=== PATIENT | male | born 1965 | race Caucasian/White ===

== ENCOUNTER 2017-03-28 02:57 | Emergency (ER) | payer MEDICARE ==
[~2017-03-28] VITALS: Ht 170.2 cm; Wt 72.6 kg
[2017-03-28 03:00] VITALS: BP 140/90
--- NOTE | 2017-03-28 03:00 | NUR ---
Domingo CAPONE as prebook.
--- NOTE | 2017-03-28 03:04 | NUR ---
Patient being evaluated by Dr. Hinson at bedside.
[2017-03-28] MEDS ORDERED: IBUPROFEN 800 MG TAB PO ONE (03:15)
--- NOTE | 2017-03-28 03:20 | NUR ---
X-Ray at bedside.
[2017-03-28 03:54] VITALS: BP 128/74
--- NOTE | 2017-03-28 03:55 | NUR ---
Patient discharged with v/s stable. Written and verbal after care instructions given and explained. Patient verbalized understanding. Police with in custody. All questions addressed prior to discharge. Advised to follow up with PMD.
== END 2017-03-28 03:55 ==
LOC: MED 02:57
DX: S52.692A Other fracture of lower end of left ulna, initial encounter for closed fracture (principal); F10.10 Alcohol abuse, uncomplicated; V29.9XXA Motorcycle rider (driver) (passenger) injured in unspecified traffic accident, initial encounter; Y93.89 Activity, other specified; Y92.89 Other specified places as the place of occurrence of the external cause; Y99.8 Other external cause status
CPT/HCPCS: 29125; 73090; 73130; 99284; Q0092

== ENCOUNTER 2020-02-28 11:08 | Emergency (ER) | payer MEDICAID, MEDICARE ==
[~2020-02-28] VITALS: Ht 177.8 cm; Wt 90.7 kg
--- NOTE | 2020-02-28 11:08 | NUR ---
PATIENT BIBA TO ER BED 5.
--- NOTE | 2020-02-28 11:10 | NUR ---
54 y/o male biba from bus stop for ETOH intoxication. Per ems pt was found by PD slurring words, with unsteady gait, and confused. Pt states "i drank all of the allie waters", unable to give specific amount. Denies pain. Denies N/V/D. Positioned for comfort, placed on bedside monitor. VSS medhx: unobtainable
--- NOTE | 2020-02-28 11:11 | NUR ---
DR GARCIA AT BEDSIDE EVALUATING PT.
[2020-02-28 11:14] VITALS: BP 119/70
[2020-02-28 13:10] VITALS: BP 119/70
--- NOTE | 2020-02-28 13:10 | NUR ---
Pt dischared without d/c paperwork. Pt did not want to wait for papers. Dr Pedroza made awake. Ambulatory with steady gait.
== END 2020-02-28 13:10 | disposition home or self-care (01) ==
LOC: MED 11:08
DX: F10.129 Alcohol abuse with intoxication, unspecified (principal)
CPT/HCPCS: 99283

== ENCOUNTER 2020-07-26 18:31 | Emergency (ER) | payer MEDICAID ==
[~2020-07-26] VITALS: Ht 172.7 cm; Wt 77.1 kg
[2020-07-26] MEDS ORDERED: HALOPERIDOL IM 5 MG/ML VIAL ONE (18:43)
[2020-07-26] MEDS ORDERED: HALOPERIDOL IM 5 MG/ML VIAL IM ONE (18:45)
[2020-07-26 18:46] VITALS: BP 104/56
[2020-07-26] MEDS ORDERED: NACL 0.9% 1,000 ML IV ONE (19:05)
--- NOTE | 2020-07-26 19:19 | NUR ---
Dr. Lay examining patient.
--- NOTE | 2020-07-26 19:45 | NUR ---
RECEIVED PT IN BED 1 WITH SOFT WRIST RESTRAINTS IN PLACE. AWAKENED WITH LITTLE ENCOURAGEMENT.PT IS VERY AGITATED AND RESTLESS. WAS MEDICATED PRIOR TO MY ARRIVALBUT REMAINS UNCOOPERATIVE.
--- NOTE | 2020-07-26 20:25 | NUR ---
PT REMAINS RESTLESS. 20G SL ESTABLISHED RIGHT HAND, LABS DRAWN
[2020-07-26 20:34] LABS: BASOPHILS # (AUTO) 0.1 K/uL (0.00-0.22); EOSINOPHILS # (AUTO) 0.1 K/uL (0-0.4); EOSINOPHILS % (AUTO) 2.1 % (0.0-4.0); HEMOGLOBIN 9.8 g/dL (12.0-18.0); LYMPHOCYTES # (AUTO) 1.2 K/uL (2.0-11.5); LYMPHOCYTES % (AUTO) 35.1 % (20.5-51.1); MEAN CORPUSCULAR HEMOGLOBIN 27 pg (27-31); MEAN CORPUSCULAR HGB CONC 33 g/dL (33-37); MEAN CORPUSCULAR VOLUME 83.4 fL (80-94); MONOCYTES # (AUTO) 0.3 K/uL (0.8-1.0); MONOCYTES % (AUTO) 8.9 % (1.7-9.3); NEUTROPHILS # (AUTO) 1.8 K/uL (1.8-7.7); NEUTROPHILS % (AUTO) 51.9 % (42.2-75.2); PLATELET COUNT (AUTO) 251 K/uL (140-450); RED BLOOD CELL COUNT(AUTO) 3.59 MIL/uL (4.20-6.10); RED CELL DISTRIBUTION WIDTH 21.3 % (11.6-13.7); WHITE BLOOD COUNT (AUTO) 3.5 K/uL (4.8-10.8)
[2020-07-26 20:46] LABS: ALBUMIN 3.8 g/dL (3.4-5.0); ANION GAP 13.6 (8-16); ASPARTATE AMINOTRANSFERASE 44 U/L (15-37); CARBON DIOXIDE 27.1 mmol/L (21-32); CHLORIDE 104 mmol/L (98-107); CREATININE 0.9 mg/dL (0.6-1.3); GFR ARICAN-AMERICAN 114 mL/min (>90); GLUCOSE 102 mg/dL (74-106); LIPASE 213 U/L (73-393); POTASSIUM 3.7 mmol/L (3.5-5.1); SODIUM SERUM 141 mmol/L (136-145); TOTAL BILIRUBIN 0.4 mg/dL (0.0-1.0); UREA NITROGEN, BLOOD 13 mg/dL (7-18)
[2020-07-26 20:49] LABS: SALICYLATE < 2.8 mg/dL (2.8-20.0)
[2020-07-26 20:51] LABS: ACETAMINOPHEN < 0.5 ug/ml (10-30)
[2020-07-26 21:12] LABS: CKMB RELATIVE INDEX 0.9 (0.0-2.5); CREATINE KINASE MB 3.6 ng/mL (0-3.6)
[2020-07-26 22:00] VITALS: BP 108/64
--- NOTE | 2020-07-26 22:00 | NUR ---
PT HAS BECOME RESTLESS AND BELIGERANT, PULLED IV OUT
--- NOTE | 2020-07-27 | NUR ---
Patient appears to be resting comfortably in bed. Vital Signs within normal limits. Respirations even and unlabored.
--- NOTE | 2020-07-27 01:44 | NUR ---
UA AND UDS NOT NECESSARY AT THIS TIME, PER DR. ACEVEDO ORDERS CAN BE CANCELLED.
--- NOTE | 2020-07-27 04:30 | NUR ---
PT IS AWAKE AND RESTLESS, READY FOR DISCHARGE. AMBULATES TO BR WITH STEADY GAIT
--- NOTE | 2020-07-27 04:38 | NUR ---
Patient discharged with v/s stable. Written and verbal after care instructions given and explained. Patient verbalized understanding. Ambulatory with steady gait. All questions addressed prior to discharge. Advised to follow up with PMD. BUS PASS GIVEN
== END 2020-07-27 04:38 | disposition home or self-care (01) ==
LOC: MED 18:31
DX: F10.129 Alcohol abuse with intoxication, unspecified (principal); Y90.8 Blood alcohol level of 240 mg/100 ml or more
CPT/HCPCS: 36415; 70450; 71045; 80053; 82550; 82553; 83690; 84484; 85025; 93005; 96372; 99285; G0480; G0482; J1630

== ENCOUNTER 2020-09-16 12:09 | Emergency (ER) | payer MEDICAID ==
[~2020-09-16] VITALS: Ht 177.8 cm; Wt 74.8 kg
[2020-09-16 12:13] VITALS: BP 117/70
[2020-09-16] MEDS ORDERED: NACL 0.9% 1,000 ML IV ONE (12:15)
--- NOTE | 2020-09-16 12:15 | NUR ---
PATIENT PRESENTS TO ED BROUGHT IN BY EMS WITH ALCOHOL INTOXICATION. PT IS CONFUSED AND AGITATED; SKIN IS PINK/WARM/DRY; LUNGS CLEAR BL; HR EVEN AND REGULAR; RESPIRATIONS EVEN AND UNABLORED; PATIENT STATES PAIN OF 0/10 AT THIS TIME; VSS; PATIENT POSITIONED FOR COMFORT; HOB ELEVATED; BEDRAILS UP X1; BED DOWN. ER MD MADE AWARE OF PT STATUS. HX: UNABLE TO OBTAIN ALLERGIES: UNABLE TO OBTAINE
--- NOTE | 2020-09-16 12:33 | NUR ---
PT TAKEN TO CT VIA [facility]MOHINDER.
[2020-09-16 12:55] LABS: BASOPHILS % (AUTO) 0.6 % (0.0-2.0); EOSINOPHILS % (AUTO) 0.9 % (0.0-4.0); HEMATOCRIT 31.1 % (36-52); HEMOGLOBIN 10.1 g/dL (12.0-18.0); LYMPHOCYTES # (AUTO) 0.9 K/uL (2.0-11.5); LYMPHOCYTES % (AUTO) 21.3 % (20.5-51.1); MEAN CORPUSCULAR HEMOGLOBIN 26 pg (27-31); MEAN CORPUSCULAR HGB CONC 32 g/dL (33-37); MEAN CORPUSCULAR VOLUME 80.5 fL (80-94); MONOCYTES # (AUTO) 0.4 K/uL (0.8-1.0); MONOCYTES % (AUTO) 8.4 % (1.7-9.3); NEUTROPHILS # (AUTO) 3.1 K/uL (1.8-7.7); NEUTROPHILS % (AUTO) 68.8 % (42.2-75.2); PLATELET COUNT (AUTO) 217 K/uL (140-450); RED BLOOD CELL COUNT(AUTO) 3.86 MIL/uL (4.20-6.10); RED CELL DISTRIBUTION WIDTH 20.8 % (11.6-13.7); WHITE BLOOD COUNT (AUTO) 4.4 K/uL (4.8-10.8)
[2020-09-16] MEDS ORDERED: ZIPRASIDONE MESYLATE 20 MG/ML VIAL IM ONE (13:00)
[2020-09-16 13:13] LABS: ALBUMIN 3.5 g/dL (3.4-5.0); ANION GAP 14.3 (8-16); ASPARTATE AMINOTRANSFERASE 46 U/L (15-37); CARBON DIOXIDE 25.2 mmol/L (21-32); CHLORIDE 104 mmol/L (98-107); CREATININE 0.6 mg/dL (0.6-1.3); GFR ARICAN-AMERICAN 181 mL/min (>90); GLUCOSE 95 mg/dL (74-106); POTASSIUM 3.5 mmol/L (3.5-5.1); SALICYLATE < 2.8 mg/dL (2.8-20.0); SODIUM SERUM 140 mmol/L (136-145); TOTAL BILIRUBIN 0.6 mg/dL (0.0-1.0); UREA NITROGEN, BLOOD 6 mg/dL (7-18)
[2020-09-16] MEDS ORDERED: WATER STERILE 10 ML MC ONE (13:15)
[2020-09-16 13:16] LABS: ACETAMINOPHEN < 0.5 ug/ml (10-30)
--- NOTE | 2020-09-16 13:30 | NUR ---
ATTEMPTED TO PLACE IV BUT PT BECAME COMBATIVE, WILL REATTEMPT LATER
--- NOTE | 2020-09-16 14:24 | NUR ---
PT TAKEN TO CT VIA MATEO FOR SECOND ATTEMPT AT CT NOW THAT PT IS MEDICATED AND CALM
--- NOTE | 2020-09-16 14:35 | NUR ---
PT RETURNED FROM CT VIA [facility]
[2020-09-16 14:51] VITALS: BP 125/71
--- NOTE | 2020-09-16 17:32 | NUR ---
PATIENT ELOPED FROM FACILITY. DISCHARGE INSTRUCTIONS NOT GIVEN TO PATIENT. DR. ACEVEDO NOTIFIED.
== END 2020-09-16 17:37 | disposition home or self-care (01) ==
LOC: MED 12:09
DX: F10.129 Alcohol abuse with intoxication, unspecified (principal)
CPT/HCPCS: 36415; 70450; 80053; 85025; 96372; 99284; G0480; G0482; J3486

== ENCOUNTER 2020-10-26 21:41 | Emergency (ER) | payer MEDICAID ==
[~2020-10-26] VITALS: Ht 167.6 cm; Wt 78.0 kg
[2020-10-26 21:48] VITALS: BP 132/76
--- NOTE | 2020-10-26 22:12 | NUR ---
PT. TAKEN FROM LOBBY TO GO TO XRAY VIA WHEELCHAIR.
--- NOTE | 2020-10-26 22:30 | NUR ---
PT. LEFT WITHOUT BEING SEEN.
== END 2020-10-26 22:27 | disposition left against medical advice (07) ==
LOC: MED 21:41
DX: M54.2 Cervicalgia (principal); Z53.21 Procedure and treatment not carried out due to patient leaving prior to being seen by health care provider
CPT/HCPCS: 72040; 99281

== ENCOUNTER 2020-10-27 01:42 | Emergency (ER) | payer MEDICAID ==
[~2020-10-27] VITALS: Ht 167.6 cm; Wt 79.4 kg
[2020-10-27 02:01] VITALS: BP 135/71
[2020-10-27 02:15] LABS: BASOPHILS % (AUTO) 0.1 % (0.0-2.0); HEMATOCRIT 26.6 % (36-52); HEMOGLOBIN 8.5 g/dL (12.0-18.0); LYMPHOCYTES % (AUTO) 7.2 % (20.5-51.1); MEAN CORPUSCULAR HEMOGLOBIN 25 pg (27-31); MEAN CORPUSCULAR HGB CONC 32 g/dL (33-37); MEAN CORPUSCULAR VOLUME 77.2 fL (80-94); MONOCYTES # (AUTO) 1.1 K/uL (0.8-1.0); MONOCYTES % (AUTO) 8.1 % (1.7-9.3); NEUTROPHILS # (AUTO) 11.5 K/uL (1.8-7.7); PLATELET COUNT (AUTO) 323 K/uL (140-450); RED BLOOD CELL COUNT(AUTO) 3.44 MIL/uL (4.20-6.10); RED CELL DISTRIBUTION WIDTH 21.2 % (11.6-13.7); WHITE BLOOD COUNT (AUTO) 13.6 K/uL (4.8-10.8)
[2020-10-27 02:28] LABS: NEUTROPHILS % (AUTO) 84.6 % (42.2-75.2)
[2020-10-27] MEDS ORDERED: KETOROLAC 30 MG/ML VIAL IM ONE (02:30)
[2020-10-27 02:36] LABS: ALBUMIN 3.1 g/dL (3.4-5.0); ANION GAP 27.8 (8-16); ASPARTATE AMINOTRANSFERASE 23 U/L (15-37); CARBON DIOXIDE 17.8 mmol/L (21-32); CHLORIDE 95 mmol/L (98-107); CREATININE 1.1 mg/dL (0.6-1.3); GFR ARICAN-AMERICAN 90 mL/min (>90); GLUCOSE 84 mg/dL (74-106); SODIUM SERUM 138 mmol/L (136-145); TOTAL BILIRUBIN 0.8 mg/dL (0.0-1.0); UREA NITROGEN, BLOOD 15 mg/dL (7-18)
--- NOTE | 2020-10-27 02:42 | NUR ---
PER TELEPSYCH REQUEST INITIATED;CONNECT ID [id number]
[2020-10-27 02:44] LABS: POTASSIUM 2.6 mmol/L (3.5-5.1); SALICYLATE < 2.8 mg/dL (2.8-20.0)
--- NOTE | 2020-10-27 02:50 | NUR ---
Urine, ron, and PCR sample collected and walked to lab.
--- NOTE | 2020-10-27 02:50 | NUR ---
55 YO/M BIB PD for SI w C/O head/neck pain 01/25 x2 days. Per patient he fell backwards x2days ago, hit his head, got a laceration and went to [facility] were he was treated with brandon at laceration site. Patient is awake, and alert. Patients speech is clear. Patient is un-cooperative at this time. Patient is yelling using inappropriate language. Patient is laying in bed, locked in lowest position, x2 siderails up for patient safety. PMH: Depression, Alcoholism, Anxiety NKA
[2020-10-27] MEDS ORDERED: POTASSIUM CHLORIDE 10 MEQ TABER PO ONE (02:55)
[2020-10-27 03:22] LABS: APPEARANCE,URINE CLEAR (CLEAR); BILIRUBIN,URINE NEGATIVE (NEGATIVE); BLOOD, URINE NEGATIVE (NEGATIVE); COLOR,URINE YELLOW (YELLOW); LEUKOCYTE ESTERASE ,URINE NEGATIVE (NEGATIVE); NITRITE, URINE NEGATIVE (NEGATIVE); UGLUCOSE NEGATIVE (NEGATIVE)
--- NOTE | 2020-10-27 03:40 | NUR ---
Patient taken to CT via gurney.
--- NOTE | 2020-10-27 03:56 | NUR ---
Patient back from CT
--- NOTE | 2020-10-27 04:08 | NUR ---
Report given to SIMIN Rose for transfer of care.
[2020-10-27 04:09] LABS: BARBITURATE, URINE NEGATIVE ng/ml (NEG <=200); BENZODIAZEPINE, URINE POSITIVE ng/mL (NEG <=200); CANNABINOID, URINE NEGATIVE ng/mL (NEG <=50); COCAINE, URINE NEGATIVE ng/mL (NEG <=300); OPIATE, URINE NEGATIVE ng/mL (NEG <=2000); PHENCYCLIDINE SCREEN,URINE NEGATIVE ng/mL (NEG <=25)
--- NOTE | 2020-10-27 04:34 | NUR ---
belongings given to security
[2020-10-27 04:58] LABS: HYALINE CASTS, URINE 0-5 /LPF (None Seen); RBC,URINE 0-5 /HPF (0-5)
--- NOTE | 2020-10-27 05:17 | NUR ---
Patient appears to be resting comfortably in bed. Vital Signs within normal limits. Respirations even and unlabored. Safety measures in place. Will continue to monitor.
--- NOTE | 2020-10-27 06:33 | NUR ---
Patient appears to be resting comfortably in bed. Vital Signs within normal limits. Respirations even and unlabored. Safety measures in place. Will continue to monitor.
--- NOTE | 2020-10-27 07:11 | NUR ---
REPORT GIVEN TO SIMIN BURNS FOR CONTINUITY OF CARE
--- NOTE | 2020-10-27 07:12 | NUR ---
Received report from SIMIN Garcia. Transfer of care at this time.
--- NOTE | 2020-10-27 07:43 | NUR ---
HOB elevated, for pending telepsych.
--- NOTE | 2020-10-27 07:43 | NUR ---
CC received packet.
--- NOTE | 2020-10-27 07:51 | NUR ---
Packet faxed to: R[facility] Lov[facility]
--- NOTE | 2020-10-27 07:51 | NUR ---
Pt HOB lowered for comfort, vitals stable, will continue to monitor.
--- NOTE | 2020-10-27 08:34 | NUR ---
Spoke with Ha from [facility] for pt updates for pending placement.
--- NOTE | 2020-10-27 10:01 | NUR ---
Pt sleeping on right side, vitals stable, will continue to monitor.
--- NOTE | 2020-10-27 10:18 | NUR ---
Pt provided with meal, pt refused. Left at pt bedside.
--- NOTE | 2020-10-27 11:20 | NUR ---
Gave report to SIMIN Gifford for pending transfer. ETA for [facility] BLS to us 10-15minutes.
--- NOTE | 2020-10-27 11:51 | NUR ---
[facility] AT BEDSIDE FOR TRANSPORTATION OF PATIENT
[2020-10-27 11:58] VITALS: BP 120/76
--- NOTE | 2020-10-27 11:59 | NUR ---
Patient to be transferred to [facility]. Is being transferred due to INPATIENT PSYCH CARE. Receiving facility has accepting physician and available space. ER physician has signed transfer form. Patient or responsible democrat has agreed to transfer and signed form. Patient belongings inventoried and will be sent with patient. Copy of nursing notes, lab reports, EKG, Physicians Orders and X-rays to be sent with patient. Report called to SIMIN SARAVIA at receiving facility. [facility] ambulance service has been called for transfer. ETA is 1HR.
== END 2020-10-27 11:51 ==
LOC: MED 01:42
DX: S09.90XA Unspecified injury of head, initial encounter (principal); Z20.822 Contact with and (suspected) exposure to COVID-19; R45.851 Suicidal ideations; F32.9 Major depressive disorder, single episode, unspecified; F41.9 Anxiety disorder, unspecified; Y09 Assault by unspecified means; Y93.89 Activity, other specified; Y92.89 Other specified places as the place of occurrence of the external cause; Y99.8 Other external cause status
CPT/HCPCS: 70450; 72040; 72125; 80053; 80305; 81001; 85025; 87086; 87426; 96372; 99291; G0480; G0482; J1885; U0003

== ENCOUNTER 2021-01-25 08:28 | Emergency (ER) | payer MEDICAID ==
[~2021-01-25] VITALS: Ht 170.2 cm; Wt 72.6 kg
[2021-01-25 08:33] VITALS: BP 97/66
--- NOTE | 2021-01-25 08:37 | NUR ---
HOMELESS . NI FROM STREET FOR ETOH S/P 2 BOTTLES OF ALCOHOL X TODAY. AAOX4. PMH: DENIES
--- NOTE | 2021-01-25 08:38 | NUR ---
PT STATED "IM HUNGRY". FOOD PROVIDED FOR PT AT THIS TIME.
--- NOTE | 2021-01-25 08:52 | NUR ---
Patient being evaluated by DR BROWNE at [facility].
[2021-01-25 09:02] VITALS: BP 97/66
--- NOTE | 2021-01-25 09:02 | NUR ---
Chikis santillan in [facility] - 01/25/21 at 1014 by [email or web address] PATIENT LEFT WITHOUT BEING SEEN BY DR. BROWNE. NO FURTHER CARE PROVIDED FOR PATIENT.
--- NOTE | 2021-01-25 09:02 | NUR ---
Patient discharged with v/s stable. Written and verbal after care instructions given and explained. Patient verbalized understanding. Ambulatory with steady gait. All questions addressed prior to discharge. Advised to follow up with PMD. Addendum: 01/25/21 at 1017 by [facility] PT NELA ANTONY.
== END 2021-01-25 09:02 | disposition home or self-care (01) ==
LOC: MED 08:28
DX: F10.129 Alcohol abuse with intoxication, unspecified (principal); E11.9 Type 2 diabetes mellitus without complications; I10 Essential (primary) hypertension; F14.90 Cocaine use, unspecified, uncomplicated; Z98.890 Other specified postprocedural states
CPT/HCPCS: 99283